=== PATIENT | male | born 1970 | race Caucasian/White ===

== ENCOUNTER → 2019-09-25 | Outpatient (CLI) | payer OTHER | LOC: LAB.O 15:25 | PROVIDERS: ATTEND Nurse Practitioner Family | DX: R07.2 Precordial pain (principal) ==

== ENCOUNTER 2019-09-29 22:09 | Emergency (ER) | payer OTHER ==
[2019-09-29 22:44] VITALS: BP 141/88; TEMP 98.2
--- NOTE | 2019-09-29 22:51 | ED.PDOC ---
History of Present Illness - General Chief Complaint: Chest Pain/WA Stated Complaint: chest pain for 7 days Time Seen by Provider: 09/29/19 22:20 Source: patient Exam Limitations: no limitations - History of Present Illness Initial Comments: 49 yo M with hx of reflux who presents for epigastric abd pain/lower chest pain onset 6 days ago, constant, dull, no change since onset, no radiation, associated nausea and lightheadedness today that prompted his visit to the ED. Pt was seen at PCP for sx, is on Nexium, had negative workup including trop and EKG at the time. Denies f/c, cough, congestion, SOB, v/d, edema, urinary sx, weakness, numbness, hematemesis, melena, hematochezia, syncope. Denies prior WA. Allergies/Adverse Reactions: Allergies NO KNOWN ALLERGY Allergy (Verified 09/29/19 23:41) Home Medications: Ambulatory Orders Sucralfate Suspension [Carafate Suspension] 1 gm PO ACHS #100 ml 09/29/19 Review of Systems - Review of Systems Constitutional: Denies: chills, fever EENTM: States: no symptoms reported Respiratory: Denies: cough, orthopnea, short of breath, wheezing Cardiology: States: chest pain. Denies: edema, palpitations, syncope Gastrointestinal/Abdominal: States: abdominal pain. Denies: constipation, diarrhea, nausea, vomiting Genitourinary: Denies: dysuria, frequency, hematuria Musculoskeletal: Denies: back pain, neck pain Skin: Denies: lesions, rash Neurological: Denies: headache, numbness, weakness Endocrine: Denies: increased thirst, increased urine Hematologic/Lymphatic: Denies: easy bleeding, easy bruising Past Medical History (General) - Patient Medical History Hx Seizures: No Hx Stroke: No Hx Dementia: No Hx Asthma: No Hx of COPD: No Hx Cardiac Disorders: No Hx Congestive Heart Failure: No Hx Pacemaker: No Hx Hypertension: No Hx Thyroid Disease: No Hx Diabetes: No Hx Gastroesophageal Reflux: Yes Hx Renal Disease: No Hx Cancer: No Hx of HIV: No Hx Hepatitis C: No Hx MRSA: No Surgical History: other - Vaccination History Hx Tetanus, Diphtheria Vaccination: Yes Hx Influenza Vaccination: Yes Hx Pneumococcal Vaccination: No Immunizations Up to Date: Yes - Social History Hx Tobacco Use: No Hx Chewing Tobacco Use: No Hx Alcohol Use: No Hx Substance Use: No Hx Substance Use Treatment: No Hx Depression: No Feels Threatened In Home Enviroment: No Feels Threatened In a Relationship: No Hx Physical Abuse: No Hx Emotional Abuse: No Hx Suspected Abuse: No - Activities of Daily Living Hospice Agency (if applicable):: None - Female History Patient is a Female of Child Bearing Age (10 -59 yrs old): No Family Medical History - Family History Mother Family History: Unknown Physical Exam - Physical Exam General Appearance: Alert, Comfortable, No apparent distress, Well Developed, Well Nourished Eyes, Ears, Nose, Throat Exam: normal ENT inspection Neck: full range of motion, supple Respiratory: chest non-tender, lungs clear, normal breath sounds, no respiratory distress, no accessory muscle use Cardiovascular/Chest: normal peripheral pulses, regular rate, rhythm, no edema, no gallop, no JVD, no murmur Peripheral Pulses: radial,right: 2+, radial,left: 2+ Gastrointestinal/Abdominal: normal bowel sounds, non tender, soft, no organomegaly, no pulsatile mass Extremity: normal range of motion, non-tender, normal inspection, no pedal edema, no calf tenderness Neurologic: no motor/sensory deficits, alert, normal mood/affect, oriented x 3 Skin Exam: normal color, warm/dry Lymphatic: no adenopathy Progress - Progress Progress: I have explained and reviewed all results with the pt. Sx improved with GI cocktail. I explained that emergent conditions may arise and to return to the ER for new, worsening, or any persistent conditions. I've explained the importance of f/u for recheck. All questions and concerns addressed at this time. Pt unders tands and agrees with plan. Pt well appearing, NAD, is stable for discharge. Portia Xiao MD Emergency Medicine Physician Billing Number [id number] - Results/Orders Results/Orders: Laboratory Results - last 24 hr 09/29/19 09/29/19 09/29/19 22:28 22:28 22:28 WBC 7.6 RBC 4.77 Hgb 14.5 Hct 42.9 MCV 89.9 MCH 30.4 MCHC 33.8 RDW 12.6 Plt Count 219 MPV 8.8 Absolute Neuts (auto) 5.60 Absolute Lymphs (auto) 1.50 Absolute Monos (auto) 0.40 Absolute Eos (auto) 0.10 Absolute Basos (auto) 0.10 Neutrophils % 73.4 Lymphocytes % 19.9 L Monocytes % 4.7 Eosinophils % 1.3 Basophils % 0.7 Sodium 137 Potassium 3.9 Chloride 100 L Carbon Dioxide 27 Anion Gap 13.9 BUN 18 Creatinine 1.31 H BUN/Creatinine Ratio 13.7 Random Glucose 113 H Serum Osmolality 276.5 Calcium 9.8 Total Bilirubin 0.6 AST 29 ALT 39 Alkaline Phosphatase 59 Troponin I < 0.02 Serum Total Protein 7.7 Albumin 4.5 Globulin 3.2 Albumin/Globulin Ratio 1.4 Lipase 09/29/19 22:30 WBC RBC Hgb Hct MCV MCH MCHC RDW Plt Count MPV Absolute Neuts (auto) Absolute Lymphs (auto) Absolute Monos (auto) Absolute Eos (auto) Absolute Basos (auto) Neutrophils % Lymphocytes % Monocytes % Eosinophils % Basophils % Sodium Potassium Chloride Carbon Dioxide Anion Gap BUN Creatinine BUN/Creatinine Ratio Random Glucose Serum Osmolality Calcium Total Bilirubin AST ALT Alkaline Phosphatase Troponin I Serum Total Protein Albumin Globulin Albumin/Globulin Ratio Lipase 26 CXR: EXAM:Chest,2 Views CLINICAL INDICATION: Chest pain COMPARISON: There is no previous study for comparison. FINDINGS:Two views of the chest were obtained. The heart size is normal. The pulmonary vascularity is unremarkable. The lungs are clear. There is no consolidation, infiltrate, pleural effusion, or pneumothorax. IMPRESSION: No evidence of active pulmonary disease. Electronically signed by: Biju Serrano MD 09/29/2019 11:11 PM [employer] Vital Signs - 24 hr 09/29/19 09/29/19 09/30/19 22:10 23:09 00:07 Temperature 98.2 F 98.2 F Pulse Rate 74 Pulse Rate [ 74 69 69 tele monitor] Respiratory 18 14 14 Rate Blood Pressure 141/88 141/88 141/88 [Left Arm] O2 Sat by Pulse 99 97 97 Oximetry - EKG/XRAY/CT EKG: Sinus, no ST T wave changes Departure - Departure Clinical Impression: Epigastric pain, Chest pain, unspecified Disposition: Discharge to Home or Self Care Health Concerns: condition: stable Departure Forms: ED Discharge - Pt. Copy, Patient Portal Self Enrollment Instructions: DI for Chest Pain, Acute Abdomen (Belly Pain), Adult (DC) Referrals: Jeremy Lovelace MD [Primary Care Provider] - 1-2 Days Prescriptions: Sucralfate Suspension [Carafate Suspension] 1 gm PO ACHS #100 ml Home Medications: Ambulatory Orders Sucralfate Suspension [Carafate Suspension] 1 gm PO ACHS #100 ml 09/29/19 Additional Instructions: Follow up: [facility] As needed, if symptoms worsen Cardiology, make appointment in two days for follow up Your GI doctor, make appointment in two days for follow up Your PCP, make appointment in two days for follow up
[2019-09-29] MEDS ORDERED: ALUM & MAG HYDROX-SIMETHICONE 30 ML UD ONE (22:54)
[2019-09-29] MEDS ORDERED: LIDOCAINE HCL 2% (MOUTH-THROAT) 15 ML UD ONE (22:54)
[2019-09-29] MEDS: ALUM & MAG HYDROX-SIMETHICONE 30 ML, LIDOCAINE VISCOUS 2% 15 ML PO ONE ×2 (22:55)
--- NOTE | 2019-09-29 23:13 | RAD ---
EXAM:Chest,2 Views CLINICAL INDICATION: Chest pain COMPARISON: There is no previous study for comparison. FINDINGS:Two views of the chest were obtained. The heart size is normal. The pulmonary vascularity is unremarkable. The lungs are clear. There is no consolidation, infiltrate, pleural effusion, or pneumothorax. IMPRESSION: No evidence of active pulmonary disease. Electronically signed by: Biju Serrano MD 09/29/2019 11:11 PM [facility]
[2019-09-29 23:23] VITALS: O2SAT 97
== END 2019-09-30 00:10 | disposition home or self-care (01) ==
LOC: ER 22:09
DX: R07.9 Chest pain, unspecified (principal); R10.13 Epigastric pain; K21.9 Gastro-esophageal reflux disease without esophagitis; Z79.899 Other long term (current) drug therapy

== ENCOUNTER → 2019-10-01 | Outpatient (CLI) | payer OTHER ==
--- NOTE | 2019-10-01 08:07 | US ---
EXAM DESCRIPTION: Gall Bladder: ULTRASOUND. CLINICAL HISTORY: EPIGASTRIC PN COMPARISON: None. TECHNIQUE: Transabdominal scanning: Broussard-scale and Doppler modes. FINDINGS: Gallbladder: normal size, shape, echogenicity; no intraluminal stones or sludge. No fluid around the gallbladder. No wall thickening. mm Non-tender with transducer pressure. Common bile duct: caliber 5.8 mm upper normal limits Liver: normal echogenicity; contour liver capsule smooth where seen. No fluid around the liver. Intrahepatic biliary ducts normal caliber. Doppler hepatopedal flow portal vein.. Long axis right lobe 15.5 Pancreas: normal size and echogenicity. Duct not seen. Aorta: 2.2 cm normal caliber. Right kidney: 10.0 cm Long axis. Normal cortical thickness and echogenicity. No echogenic stones or hydronephrosis. . IMPRESSION: Normal ultrasound gallbladder and CBD, and right upper quadrant of the abdomen. No free fluid. The stomach was not imaged. Electronically signed by: Jarrett Kim MD 10/01/2019 8:05 AM [facility]
== END ==
LOC: US 10:00
PROVIDERS: ATTEND Family Medicine
DX: R10.13 Epigastric pain (principal)

== ENCOUNTER → 2020-04-13 | Outpatient (CLI) | payer OTHER ==
--- NOTE | 2020-04-13 10:03 | CT ---
EXAM DESCRIPTION: Abdomen/Pelvis w/Contrast CLINICAL HISTORY: 50 years Male, EPIGASTRIC PAIN TECHNIQUE: This exam was performed according to our departmental dose-optimization program, which includes automated exposure control, adjustment of the mA and/or kV according to patient size and/or use of iterative reconstruction technique. COMPARISON: None at time of initial interpretation. FINDINGS: Visualized lung bases are grossly unremarkable. The liver is unremarkable. No suspicious hepatic lesion. No biliary dilatation. The gallbladder is unremarkable. The portal vein is patent. The spleen, pancreas and adrenal glands are unremarkable. Left renal cyst. Symmetric renal parenchymal enhancement. No hydronephrosis. No urolithiasis. Unremarkable bladder. Scattered colonic diverticula without diverticulitis. No evidence of bowel obstruction. No findings to suggest appendicitis. Normal appendix. Long segmental mural thickening of the descending and sigmoid colon with associated mesenteric vascular congestion. No urothelial lesion. No adenopathy. No focal fluid collection. No free air. Normal caliber abdominal aorta. No acute or suspicious osseous abnormality. Scattered degenerative changes present. Unilateral L4 pars defect. IMPRESSION: Long segmental mural thickening of the descending and sigmoid colon with associated mesenteric vascular congestion which may reflect acute colitis. Electronically signed by: Og Carrasco MD 04/13/2020 10:02 AM CDT
== END ==
LOC: CT 07:55
PROVIDERS: ATTEND Family Medicine
DX: K63.9 Disease of intestine, unspecified (principal)

== ENCOUNTER 2020-07-02 18:35 | Emergency (ER) | payer OTHER ==
[2020-07-02] MEDS ORDERED: ASPIRIN (CHEWABLE) 81 MG TAB PO ONE (18:45)
[2020-07-02] MEDS ORDERED: SODIUM CHLORIDE 0.9% (FLUSH) 10 ML SYG IV PRN (18:45)
[2020-07-02] MEDS ORDERED: NITROGLYCERIN 0.4 MG 25 EA TAB SL ONE (18:45)
--- NOTE | 2020-07-02 18:46 | ED.PDOC ---
History of Present Illness - General Time Seen by Provider: 07/02/20 18:45 Source: patient - History of Present Illness Initial Comments: 50-year-old male with past medical history of GERD, postop day #3 s/p umbilical hernia repair who presents with chief complaint of chest pain. Onset this morning with gradual worsening, located to left chest wall with some radiating tingling/numbing pains down the medial aspect of the left upper extremity and to the medial left hand, pressure-like, heavy, 4/10 severity, worse with palpation of the chest wall and taking a deep breath, not worse with exertion. Patient reports he has been taking Toradol, tramadol, and Colace since his surgery. The tramadol dosing has been every 6 hours, last dose was just prior to arrival. Patient reports he is only had 1 bowel movement in the past 3 days, which was small hardened stool earlier today. He reports passing flatus but minimal. He does report increased abdominal distention. Also reports nausea without emesis. Denies any fevers, chills, cough, dyspnea, diarrhea, urinary symptoms, leg swelling, sore throat. He does report a new onset BL erythematous rash to his abdomen side and flank regions as well as a contact irritation rash to left lower lateral chest wall from a tele sticker from the recent surgery. Denies any cardiac history to his knowledge, also denies any significant family history of cardiac issues. Denies any history of blood clots. Pt had periumbilical hernia surgery 3 days ago in [place] at [facility] surgical center - Dr. Sharma. PCP is Dr. Lovelace. Pt reports hx of chest pains in the past and has had some outpatient work-up. His VALERIE recently came back positive and he has been referred to rheumatology outpatient. Allergies/Adverse Reactions: Allergies NO KNOWN ALLERGY Allergy (Verified 09/29/19 23:41) Home Medications: Ambulatory Orders Esomeprazole Magnesium [Nexium] 40 mg PO DAILY 07/02/20 Ketorolac Tromethamine 10 mg PO Q6H PRN 07/02/20 Ondansetron [Ondansetron Odt] 4 mg PO Q6H PRN 07/02/20 Tramadol HCl 50 mg PO Q6H PRN 07/02/20 Review of Systems - Review of Systems Review of Systems: 07/02/20 19:43 as per HPI All other Systems: Reviewed and Negative Past Medical History (General) - Patient Medical History Hx Seizures: No Hx Stroke: No Hx Dementia: No Hx Asthma: No Hx of COPD: No Hx Cardiac Disorders: No Hx Congestive Heart Failure: No Hx Pacemaker: No Hx Hypertension: No Hx Thyroid Disease: No Hx Diabetes: No Hx Gastroesophageal Reflux: Yes Hx Renal Disease: No Hx Cancer: No Hx of HIV: No Hx Hepatitis C: No Hx MRSA: No - Vaccination History Hx Tetanus, Diphtheria Vaccination: Yes Hx Influenza Vaccination: Yes Hx Pneumococcal Vaccination: No - Social History Hx Tobacco Use: No Hx Chewing Tobacco Use: No Hx Alcohol Use: No Hx Substance Use: No Hx Substance Use Treatment: No Hx Depression: No Hx Physical Abuse: No Hx Emotional Abuse: No Hx Suspected Abuse: No Family Medical History - Family History Mother Family History: Unknown Physical Exam - Physical Exam General Appearance: Alert, No apparent distress, Restless Eye Exam: bilateral normal Ears, Nose, Throat: normal ENT inspection Neck: non-tender, full range of motion, supple, normal inspection Respiratory: lungs clear, normal breath sounds, no respiratory distress Cardiovascular/Chest: normal peripheral pulses, regular rate, rhythm, no edema, no gallop, no JVD, no murmur, other - Moderate ttp to anterior left chest wall, reproduces pain Peripheral Pulses: radial,right: 2+, radial,left: 2+ Gastrointestinal/Abdominal: soft, no organomegaly, abnormal bowel sounds - diminished throughout, distended, tenderness - moderate throughout w/o guarding or rebound Back Exam: normal inspection, no CVA tenderness Extremity: normal range of motion, non-tender, normal inspection, no pedal edema, no calf tenderness, normal capillary refill Neurologic: steel barrel reamer II-XII nml as tested, no motor/sensory deficits, alert, normal mood/affect, oriented x 3 Skin Exam: normal color, warm/dry, rash - erythematous papular rash to BL abdominal regions and flank regions. Also 3x3 cm donut-shaped rash to left chest wall - appears allergic contact rash from tele sticker Progress - Progress Progress: 07/02/20 19:17 Chest pain -Consider musculoskeletal chest wall pain, pleuritis, ACS, PE, pneumonia, pericarditis, small bowel obstruction, ileus, bloating/cramping, constipation, other -Patient stable, vitals within normal limits -Obtain cardiac work-up, KUB -We will give baby aspirin 324 mg p.o. and nitroglycerin sublingual as needed 07/02/20 20:19 -Patient remains stable, reports pain is much improved but not yet fully resolved. Lab work including troponin, d-dimer, CBC, CMP is all largely unremarkable. X-ray of the abdomen reveals moderate constipation in the ascending colon but no evidence of bowel obstruction per my read. -We will obtain repeat EKG and troponin at the 2-hour genaro. We will give trial of GI cocktail in the ED and reassess. 07/02/20 21:31 -Pt reports marked improvement in pain, all sx's now resolved. Remains stable. Repeat EKG unchanged, trop neg x2. Discussed all findings in detail with the patient. I suspect his chest pain is gassy/bloaty in nature likely normal postoperatively but also complicated by Tramadol usage. It is also possible he may be developing some gastritis from the ketorolac usage. I advised that he stop the ketorolac and try to space out his Tramadol as much as possible. Take Tylenol as needed for pain. Also discovered he is taking only 1/4 cap full of Miralax once daily - advised to take at least 17 g PO once daily and to increase to twice daily if still constipated. Advised adding Senna OTC BID and OTC antacids as well as needed. -dc to home in good condition, return warnings discussed at length. Also discussed with Dulce Cobos who will continue to follow outpatient. Andres Augustine MD Billing #[id number] 07/02/20 18:45 EKG STAT 07/02/20 20:45 EKG STAT Laboratory Results - last 24 hr 07/02/20 07/02/20 07/02/20 18:51 18:51 18:51 WBC 6.9 RBC 4.87 Hgb 15.5 Hct 43.7 MCV 89.8 MCH 31.9 H MCHC 35.5 RDW 13.4 Plt Count 216 MPV 8.7 Absolute Neuts (auto) 3.80 Absolute Lymphs (auto) 2.50 Absolute Monos (auto) 0.40 Absolute Eos (auto) 0.20 Absolute Basos (auto) 0.10 Neutrophils % 54.9 Lymphocytes % 35.8 Monocytes % 6.3 Eosinophils % 2.2 Basophils % 0.8 PT 9.2 INR < 1.00 PTT (SP) 26.4 D-Dimer, Quantitative 262.0 Sodium 137 Potassium 3.9 Chloride 99 L Carbon Dioxide 30 Anion Gap 11.9 L BUN 13 Creatinine 1.06 BUN/Creatinine Ratio 12.3 Random Glucose 108 H Serum Osmolality 274.5 L Lactic Acid Calcium 9.4 Total Bilirubin 0.6 AST 40 ALT 55 Alkaline Phosphatase 98 Troponin I B-Natriuretic Peptide 81.7 Serum Total Protein 7.9 Albumin 4.6 Globulin 3.3 Albumin/Globulin Ratio 1.4 07/02/20 07/02/20 18:51 21:05 WBC RBC Hgb Hct MCV MCH MCHC RDW Plt Count MPV Absolute Neuts (auto) Absolute Lymphs (auto) Absolute Monos (auto) Absolute Eos (auto) Absolute Basos (auto) Neutrophils % Lymphocytes % Monocytes % Eosinophils % Basophils % PT INR PTT (SP) D-Dimer, Quantitative Sodium Potassium Chloride Carbon Dioxide Anion Gap BUN Creatinine BUN/Creatinine Ratio Random Glucose Serum Osmolality Lactic Acid 1.2 Calcium Total Bilirubin AST ALT Alkaline Phosphatase Troponin I < 0.02 B-Natriuretic Peptide Serum Total Protein Albumin Globulin Albumin/Globulin Ratio - EKG/XRAY/CT EKG: Sinus - Normal sinus rhythm, heart rate 60, no ST elevations noted, no Q waves noted, axis normal, intervals normal, appears unchanged from 09/29/2019 EKG. XRAY: chest - No acute processes per my read - Additional EKG/XRAY/Consults EKG #2: Unchanged from - initial Departure - Departure Clinical Impression: Gassy chest pain Time of Disposition: 21:06 Disposition: Discharge to Home or Self Care Condition: Good Departure Forms: ED Discharge - Pt. Copy, Patient Portal Self Enrollment Instructions: Chest Pain (DC) Diet: resume usual diet Activity: increase activity as tolerated Referrals: Jeremy Lovelace MD [Primary Care Provider] - 1-5 Days Home Medications: Ambulatory Orders Esomeprazole Magnesium [Nexium] 40 mg PO DAILY 07/02/20 Ketorolac Tromethamine 10 mg PO Q6H PRN 07/02/20 Ondansetron [Ondansetron Odt] 4 mg PO Q6H PRN 07/02/20 Tramadol HCl 50 mg PO Q6H PRN 07/02/20 Additional Instructions: Gradually advance your diet and activity level as tolerated as instructed by your surgeon. I advise decreasing the frequency of your tramadol as you are able in order to prevent further bloating/gassiness, which may be contributing to your chest discomfort. You may also quit taking the ketorolac which may be causing inflammation of your stomach and gut. You may take Tylenol 650 mg every 4-6 hours as needed for pain, which should not cause abdominal discomfort or inflammation of the gut. Continue to take MiraLAX 17 g orally 1-2 times per day as needed for constipation. You may take in addition Senna (lax) 8.6 mg by mouth twice daily to help soften stools. This should be available [id number]. Take [id number] antacids as needed for gastric reflux symptoms. Return to the ED immediately if you develop any concerning symptoms such as change or worsening chest pain, shortness of breath, lack of bowel movements passing gas, intractable nausea and vomiting, dark or bloody vomiting, bloody stools, fevers, chills, etc. Follow-up with your primary care physician is recommended in the next 3 to 5 days for repeat evaluation or sooner as needed.
--- NOTE | 2020-07-02 19:15 | RAD ---
EXAM DESCRIPTION: XR Chest, 1 View CLINICAL HISTORY: 50 years Male chest pain, post-op hernia patient TECHNIQUE: One view of the chest. COMPARISON: 09/29/2019 FINDINGS: The lungs are clear without focal consolidation, effusion, or pneumothorax. The cardiomediastinal silhouette and central pulmonary vasculature are normal. No acute osseous abnormalities. IMPRESSION: No acute cardiopulmonary abnormalities. Electronically signed by: Karyn Chapa MD 07/02/2020 7:14 PM CDT
[2020-07-02] MEDS ORDERED: ALUM & MAG HYDROX-SIMETHICONE 30 ML, LIDOCAINE VISCOUS 2% 15 ML PO ONE ×2 (20:18)
--- NOTE | 2020-07-02 20:32 | RAD ---
EXAM: Abdomen 1 View CLINICAL HISTORY: abdominal distension, constipation, post-op pt COMPARISON: 04/13/2020 TECHNIQUE: Single supine AP radograph of the abdomen. FINDINGS: Nonobstructive bowel gas pattern. No pneumatosis or pneumoperitoneum. Surgical material projects over the lower midline abdomen. No ectopic calcifications. Normal osseous structures. IMPRESSION: 1. Nonobstructive bowel gas pattern. Electronically signed by: Biju Garcia MD 07/02/2020 8:30 PM CDT
[2020-07-02 22:02] VITALS: TEMP 97.2; O2SAT 98
[2020-07-02 22:04] VITALS: BP 120/77
== END 2020-07-02 21:50 | disposition home or self-care (01) ==
LOC: ER 18:35
DX: R07.89 Other chest pain (principal); K59.00 Constipation, unspecified; R11.2 Nausea with vomiting, unspecified; R21 Rash and other nonspecific skin eruption; K21.9 Gastro-esophageal reflux disease without esophagitis; Z79.899 Other long term (current) drug therapy; Z98.890 Other specified postprocedural states; Z87.19 Personal history of other diseases of the digestive system
CPT/HCPCS: 71045; 74018; 80053; 83605; 83880; 84484; 85025; 85379; 85610; 85730; 93005; A4216